=== PATIENT | female | born 1965 | race Caucasian/White ===

== ENCOUNTER 2023-07-23 18:41 | Emergency (ER) | payer OTHER, SELFPAY ==
[2023-07-23 18:48] VITALS: BP 116/79
[2023-07-23 19:49] VITALS: BP 106/73
[2023-07-23 20:24] LABS: % Basophils 0.9 % (0-2); % Eosinophils 3.3 % (0-6); % Immature Granulocytes 0.2 % (0-0.5); % Lymphocytes 56.6 % (20.5-51.1); % Monocytes 5.3 % (1.7-9.3); % Neutrophils 33.7 % (42.2-75.2); Absolute Basophils 0.1 10^3/uL (0-0.2); Absolute Eosinophils 0.3 10^3/uL (0-0.7); Absolute Lymphocytes 5.3 10^3/uL (1.2-3.4); Absolute Monocytes 0.5 10^3/uL (0.1-0.6); Absolute Neutrophils 3.2 10^3/uL (1.4-6.5); Hematocrit 45.8 % (37.0-47.0); Mean Corp Hgb Conc. 34.9 g/dL (33.0-37.0); Mean Corpuscular Hgb 33.2 pg (27.0-31.0); Mean Platelet Volume 9.1 fL (7.4-10.4); Nucleated Red Blood Cells % 0 %; Platelet Count 313 10^3/uL (130-400); Red Blood Cell Count 4.82 10^6/uL (4.20-5.40); Red Cell Dist. Width 14.6 % (11.5-14.5); White Blood Cell Count 9.4 10^3/uL (4.8-10.8)
--- NOTE | 2023-07-23 20:34 | ED.GENMED ---
History of Present Illness
General
Chief Complaint: Crisis Evaluation
Source: patient and other (Boyfriend)
Time Seen by Provider: 07/23/23 18:54
Travel History
Have you had any contact with someone who has COVID-19?: No
Do you have any symptoms of coronavirus? Fever > 100 degrees, chills, cough, shortness of breath, sore throat, loss of taste or smell, muscle aches, or headache?: No
History of Present Illness
History of Present Illness:
Patient complaining of severe depression. Some suicidal ideation but no plan. States he might cut herself. Admits to some alcohol issues. Wants to be hospitalized
Past History
Past History
ED Past Medical History: HTN
ED Past Surgical History: Gynecological
Social History
Tobacco: Smoker
Alcohol: Occasional
Drug: None
Personal:
Living: with family
Employment: Employed
Family History
Family History: Other (Noncontributory)
Review of Systems
Review of Systems
All Other Systems: Not applicable
Respiratory: Reports no symptoms
Cardiac: Reports no symptoms
Phy Exam
Physical Exam
Physical Exam:
GENERAL: Alert and oriented in no apparent distress
EYE: Orbits normal.
NECK: Supple
CARDIAC: Regular rate and rhythm without any obvious murmurs.
LUNGS: Clear breath sounds,normal
NEUROLOGICAL: Alert and oriented , grossly non-focal
SKIN: Warm and dry, no rash or lesion, no discoloration, skin intact.
MUSCULOSKELETAL: No edema,no deformity.Good color
PSYCH: Mildly anxious. Fully alert. At times crying when talking to her boyfriend
Course
Orders/Labs/Results
Orders:
Orders
07/23/23 18:52
Crisis Consult Urgent
Reason for Consult: SI
1:1 Observation - Suicide/ Violent Behavior As Directed
07/23/23 18:53
Test Result ONCE
07/23/23 20:17
Alcohol Urgent
Basic Metabolic Panel Urgent
Complete Blood Count/With Diff Urgent
HCG, Serum Qualitative Screen Urgent
07/23/23 20:32
Urine Drug Abuse Screen Urgent
Date Specimen was Collected: 07/23/23
Time Specimen was Collected: 18:53
Abnormal Lab Results
07/23/23 07/23/23
20:17 20:32
MCH 33.2 H pg
(27.0-31.0)
RDW 14.6 H %
(11.5-14.5)
Absolute Lymphs (auto) 5.3 H 10^3/uL
(1.2-3.4)
Neutrophils % 33.7 L %
(42.2-75.2)
Lymphocytes % 56.6 H %
(20.5-51.1)
Chloride 113 H mmol/L
(98-107)
U Marijuana (THC) Screen Positive H
(Negative)
07/23/23 20:17
07/23/23 20:17
Vital Signs
Initial and Last Documented VS:
Initial Vital Signs
Temp Pulse Resp BP Pulse Ox
98.1 F 84 19 116/79 98
07/23/23 18:48 07/23/23 18:48 07/23/23 18:48 07/23/23 18:48 07/23/23 18:48
Last Documented Vital Signs
Temp Pulse Resp BP Pulse Ox
98.0 F 77 20 106/73 98
07/23/23 21:17 07/23/23 21:17 07/23/23 21:17 07/23/23 21:17 07/23/23 21:17
*Critical Care Note
Total Time (30-74mins, 75-104mins- exclusive of procedures): Not Applicable
Update Note
Update Note:
Patient medically stable. Alcohol level elevated but fully awake alert and oriented. Patient is not driving. Can go to crisis for 201. Medically cleared
ED Attending Note
-
Portions of this chart may have been created with voice recognition software.� Occasional wrong word or��sound alike� substitutions may have occurred due to the inherent limitations of voice recognition software.
Discharge Plan
Departure
Patient Disposition: Other
Date of Disposition: 07/23/23
Time of Disposition: 20:57
Discharge Problem:
Depression/suicidal ideation, Alcohol intoxication
Instructions: Depression, Adult (DC), Drug and Alcohol Abuse Information
Prescriptions:
No Action
prednisone 50 MG tablet
50 mg PO DAILY 5 Days 0RF
amoxicillin-pot clavulanate 875 MG/125 MG tablet
1 tab PO Q12 Qty: 20 0RF
hydrocodone-acetaminophen [Vicodin] 1 EACH tablet
1 ea PO Q4 PRN (Reason: pain) Qty: 14 0RF
lisinopril-hydrochlorothiazide 20-12.5 mg tablet
1 tab PO DAILY Qty: 30 0RF
Referrals:
NONE,* [Family Provider] -
Activity Restrictions/Additional Instructions:
Go directly over to crisis for further care
Interventions
Interventions:
*Risk Screen - Suicide Last Done: 07/23/23 18:48
*General Assessment Last Done: 07/23/23 18:48
*Neglect/Abuse Screening Last Done: 07/23/23 18:48
*ED COVID-19 Vaccine History Last Done: 07/23/23 18:48
*Nursing Disposition Last Done: 07/23/23 21:17
ED-Psychological Assessment Last Done: 07/23/23 20:20
Discharge Date and Time
Discharge Date/Time: 07/23/23 21:20
Print Language: MOHAWK
[2023-07-23 20:36] LABS: Blood Urea Nitrogen 10 mg/dl (7-17); Calcium 9.2 mg/dl (8.4-10.2); Carbon Dioxide 24 mmol/L (22-30); Chloride 113 mmol/L (98-107); Glucose 95 mg/dl (70-99); Potassium 4.6 mmol/L (3.5-5.1); Sodium 145 mmol/L (135-145); eGFR > 60.00
[2023-07-23 20:37] LABS: HCG, Serum Qualitative Screen Negative
[2023-07-23 20:48] LABS: Amphetamines Negative (Negative); Barbiturates Negative (Negative); Benzodiazepines Negative (Negative); Buprenorphine Negative (Negative); Cocaine Negative (Negative); Marijuana Positive (Negative); Methadone Negative (Negative); Methamphetamines Negative (Negative); Opiates Negative (Negative); Phencyclidine Negative (Negative); Tricyclic Antidepressants Negative (Negative)
[2023-07-23 20:50] LABS: Alcohol 300 mg/dl
[2023-07-23 20:53] VITALS: BMI 18.1
[2023-07-23 21:17] VITALS: BP 106/73
--- NOTE | 2023-07-23 21:57 | ED TECH ---
This PCT Re-assumed 1:1 of the PT. She walked back over from crisis, and immediately laid on the stretcher and settled herself to sleep. Will continue to monitor.
--- NOTE | 2023-07-24 01:16 | EDRN ---
Report received, patient resting in room waiting on facility
== END 2023-07-24 06:31 | disposition other institution (70) ==
LOC: EMR 18:41
PROVIDERS: Emergency Medicine; EMERGENCY PHYSICIAN Emergency Medicine
DX: F32.A Depression, unspecified (principal); R45.851 Suicidal ideations; F10.129 Alcohol abuse with intoxication, unspecified; F17.200 Nicotine dependence, unspecified, uncomplicated
CPT/HCPCS: 99285; 80048; 80306; 82077; 84703; 85025